=== PATIENT | male | born 1955 | race Caucasian/White ===

== ENCOUNTER → 2023-11-07 07:52 | Outpatient (REF) | payer OTHER, MEDICARE, SELFPAY | LOC: RAD 07:52 | PROVIDERS: ATTENDING PHYSICIAN Surgery Vascular Surgery; FAMILY PHYSICIAN Family Medicine | DX: I73.9 Peripheral vascular disease, unspecified (principal) | CPT/HCPCS: 93922; 93925 ==

== ENCOUNTER → 2024-03-19 09:05 | Outpatient (REF) | payer OTHER, MEDICARE, SELFPAY | LOC: RAD 09:05 | PROVIDERS: ATTENDING PHYSICIAN Surgery Vascular Surgery; FAMILY PHYSICIAN Family Medicine | DX: I73.9 Peripheral vascular disease, unspecified (principal) | CPT/HCPCS: 93922; 93925 ==

== ENCOUNTER → 2024-11-18 07:56 | Outpatient (REF) | payer OTHER, MEDICARE, SELFPAY | LOC: RAD 07:56 | PROVIDERS: ATTENDING PHYSICIAN Surgery Vascular Surgery; FAMILY PHYSICIAN Family Medicine | DX: I73.9 Peripheral vascular disease, unspecified (principal) | CPT/HCPCS: 93922; 93925 ==

== ENCOUNTER 2025-01-22 20:12 | Emergency (ER) | payer OTHER, MEDICARE, SELFPAY ==
[2025-01-22 20:15] VITALS: BP 184/84
[2025-01-22 20:47] LABS: % Basophils 0.5 % (0-2); % Eosinophils 2.6 % (0-6); % Immature Granulocytes 0.6 % (0-0.5); % Lymphocytes 7.8 % (20.5-51.1); % Monocytes 10.3 % (1.7-9.3); % Neutrophils 78.2 % (42.2-75.2); Absolute Basophils 0.1 10^3/uL (0-0.2); Absolute Eosinophils 0.3 10^3/uL (0-0.7); Absolute Immature Granulocytes 0.1 10^3/uL (0-0.05); Absolute Lymphocytes 0.9 10^3/uL (1.2-3.4); Absolute Monocytes 1.2 10^3/uL (0.1-0.6); Hematocrit 38.1 % (39.0-52.0); Hemoglobin 13.2 g/dL (13.0-18.0); Mean Corp Hgb Conc. 34.6 g/dL (33.0-37.0); Mean Corpuscular Hgb 31.9 pg (27.0-31.0); Nucleated Red Blood Cells % 0 % (-); Platelet Count 212 10^3/uL (130-400); Red Blood Cell Count 4.14 10^6/uL (4.70-6.10); Red Cell Dist. Width 12.9 % (11.5-14.5); White Blood Cell Count 11.5 10^3/uL (4.8-10.8)
[2025-01-22 20:52] LABS: ALT (SGPT) 33 U/L (0-50); AST (SGOT) 23 U/L (17-59); Albumin 4.1 g/dl (3.5-5.0); Alkaline Phosphatase 169 U/L (38-126); Blood Urea Nitrogen 25 mg/dl (9-20); Calcium 9.5 mg/dl (8.4-10.2); Carbon Dioxide 22 mmol/L (22-30); Chloride 108 mmol/L (98-107); Glucose 244 mg/dl (70-99); Sodium 139 mmol/L (135-145); Total Bilirubin 0.6 mg/dl (0.2-1.3); Total Protein 6.5 g/dl (6.3-8.2); eGFR > 60.00
[2025-01-22 21:00] LABS: Troponin I < 0.012 ng/ml
[2025-01-22 21:07] LABS: Lipase 13 U/L (23-300)
--- NOTE | 2025-01-22 23:41 | ED.GENMED ---
History of Present Illness
General
Chief Complaint: Abnormal Lab Value
Source: patient
Exam Limitations: none
Time Seen by Provider: 01/22/25 22:57
Nursing documentation reviewed up to this point in time: agreed with
History of Present Illness
History of Present Illness:
69-year-old male past medical history of diabetes GERD hypertension hyperlipidemia Parkinson's presenting to the emergency department today with concerns of abnormal liver function test. He had an outpatient GGT of 146 and alpha 2 macroglobulin 354
also potassium was elevated marginally. He has had vague symptoms over the past month or so of fatigue upset stomach occasional lightheadedness. Denies any chest pain shortness of breath fevers.
Review of Systems
Review of Systems
Allergies reviewed?: Yes
All Other Systems: ROS reviewed and negative except as documented in HPI and ROS
Phy Exam
Physical Exam
Physical Exam:
GENERAL: Alert , in no apparent distress
EYE: pupils equal and reactive
NECK: Supple, no significant adenopathy.
ENT: o/p clr, mmm.
CARDIAC: Regular rate and rhythm .
LUNGS: Clear breath sounds bilaterally, no acute respiratory distress, no wheezes/rales/rhonchi
ABDOMEN: Soft, without focal tenderness, no r/g, no cvat
NEUROLOGICAL: Alert and oriented, no focal neuro deficits
SKIN: Warm and dry, skin intact.
MUSCULOSKELETAL: No edema, well perfused.
PSYCH: Normal and appropriate interaction.
Course
Orders/Labs/Results
Orders:
Orders
01/22/25 20:22
Electrocardiogram (*1) Urgent
Reason for Study: Vertigo / Dizzy
EKG- Treatment ONCE
01/22/25 20:28
Complete Blood Count/With Diff Urgent
Comprehensive Metabolic Panel Urgent
Lipase Urgent
Troponin I Urgent
Abnormal Lab Results
01/22/25
20:28
WBC 11.5 H 10^3/uL
(4.8-10.8)
RBC 4.14 L 10^6/uL
(4.70-6.10)
Hct 38.1 L %
(39.0-52.0)
MCH 31.9 H pg
(27.0-31.0)
Abs Immat Gran (auto) 0.1 H 10^3/uL
(0-0.05)
Absolute Neuts (auto) 9.0 H 10^3/uL
(1.4-6.5)
Absolute Lymphs (auto) 0.9 L 10^3/uL
(1.2-3.4)
Absolute Monos (auto) 1.2 H 10^3/uL
(0.1-0.6)
Immature Gran % 0.6 H %
(0-0.5)
Neutrophils % 78.2 H %
(42.2-75.2)
Lymphocytes % 7.8 L %
(20.5-51.1)
Monocytes % 10.3 H %
(1.7-9.3)
Chloride 108 H mmol/L
(98-107)
BUN 25 H mg/dl
(9-20)
Glucose 244 H mg/dl
(70-99)
Alkaline Phosphatase 169 H U/L
(38-126)
Lipase 13 L U/L
(23-300)
01/22/25 20:28
01/22/25 20:28
Vital Signs
Initial and Last Documented VS:
Initial Vital Signs
Temp
99.0 F
01/22/25 20:14
Last Documented Vital Signs
Temp Pulse Resp BP Pulse Ox
99.0 F 90 18 184/84 97
01/22/25 20:14 01/22/25 20:15 01/22/25 20:15 01/22/25 20:15 01/22/25 20:15
MDM/Problems Addressed
MDM/Problems Addressed:
69-year-old male presenting to the emergency department today with concerns of abnormal outpatient lab test he was told by his primary care doctor to come to the ER. Here labs without significant emergent findings. Glucose was elevated but no
signs of DKA marginally dehydrated with BUN elevation. Potassium in normal range here. Patient was advised to see GI for his outpatient lab abnormalities. Return precautions given.
*Critical Care Note
Total Time (30-74mins, 75-104mins- exclusive of procedures): Not Applicable
ED Attending Note
-
Portions of this chart may have been created with voice recognition software.� Occasional wrong word or��sound alike� substitutions may have occurred due to the inherent limitations of voice recognition software.
Discharge Plan
Departure
Patient Disposition: Home (Routine Discharge)
Date of Disposition: 01/23/25
Time of Disposition: 01:04
Patient with high blood pressure during this ER visit?: Yes
Condition: Good
Covid-19: Not Applicable
Discharge Problem:
Elevated liver function tests
Instructions: Liver panel, BLOOD PRESSURE
Referrals:
Andrew Aguilar MD [Family Provider] -
Vanna Moeller MD [Active] - Follow up in 1 week
Activity Restrictions/Additional Instructions:
You came to the emergency department today with concerns of elevated liver function test. Please follow closely with GI and hepatology. Return for any worsening, new or concerning symptoms.
Interventions
Interventions:
*Risk Screen - Suicide Last Done: 01/22/25 20:17
*General Assessment Last Done: 01/22/25 20:17
*Neglect/Abuse Screening Last Done: 01/22/25 20:17
*ED COVID-19 Vaccine History Last Done: 01/22/25 20:17
*Nursing Disposition Last Done: 01/23/25 01:14
Discharge Date and Time
Discharge Date/Time: 01/23/25 01:15
Print Language: [id number]
== END 2025-01-23 01:15 | disposition home or self-care (01) ==
LOC: EMR 20:12
PROVIDERS: Emergency Medicine; EMERGENCY PHYSICIAN Student in an Organized Health Care Education/Training Program; FAMILY PHYSICIAN Family Medicine
DX: R79.89 Other specified abnormal findings of blood chemistry (principal); E11.9 Type 2 diabetes mellitus without complications; E78.5 Hyperlipidemia, unspecified; I10 Essential (primary) hypertension; G20.A1 Parkinson's disease without dyskinesia, without mention of fluctuations
CPT/HCPCS: 99284; 80053; 83690; 84484; 85025; 93005

== ENCOUNTER → 2025-06-24 14:38 | Outpatient (REF) | payer OTHER, MEDICARE, SELFPAY | LOC: RAD 14:38 | PROVIDERS: ATTENDING PHYSICIAN Surgery Vascular Surgery; FAMILY PHYSICIAN Family Medicine | DX: I73.9 Peripheral vascular disease, unspecified (principal) | CPT/HCPCS: 93922; 93925 ==